=== PATIENT | female | born 1995 | race American Indian/Alaskan Native ===

== ENCOUNTER 2017-02-18 23:38 | Outpatient (CLI) | payer MEDICAID ==
[2017-02-19 00:08] VITALS: BP 123/59
== END 2017-02-19 02:25 | disposition home or self-care (01) ==
LOC: TRG 23:38 → LD 02-19 00:02 → TRG 02-19 02:25
PROVIDERS: ATTEND Obstetrics & Gynecology
DX: O47.1 False labor at or after 37 completed weeks of gestation (principal); Z87.891 Personal history of nicotine dependence; Z3A.38 38 weeks gestation of pregnancy
CPT/HCPCS: 59025